=== PATIENT | female | born 1950 | race Caucasian/White ===

== ENCOUNTER → 2016-08-15 | Outpatient (CLI) | payer BC ==
--- NOTE | 2016-08-18 12:46 | MAMMOGRAPHY REPORT ---
BILATERAL DIGITAL SCREENING MAMMOGRAM WITH CAD: 08/15/2016 CLINICAL HISTORY: Routine screening. Patient has no complaints. TECHNIQUE: Current study was also evaluated with a Computer Aided Detection (CAD) system. Bilatera l CC and MLO views were obtained. COMPARISON: Comparison is made to exams dated: 07/10/2015 mammogram, 07/04/2014 mammogram, 06/29/2013 m ammogram - [facility], 05/25/2007, and 12/22/2005 mammogram - [facility]. BREAST COMPOSITION: The tissue of both breasts is heterogeneously dense, which may obscure small ma sses. FINDINGS: There are possible calcifications seen within the left central breast, for which spot mag nification views are recommended for further evaluation. The remainder of both breasts are stable compared to prior exams, without suspicious masses, calcifi cations, or areas of architectural distortion noted. IMPRESSION: ACR BI-RADS CATEGORY 0: INCOMPLETE EVALUATION: NEED ADDITIONAL IMAGING EVALUATION Left breast calcifications, for which additional imaging evaluation is recommended. The patient sohail l be called to schedule an appointment. Approximately 10% of breast cancers are not detected with mammography. A negative mammographic repor t should not delay biopsy if a clinically suggestive mass is present. Rosalie Oviedo M.D. ah/:08/17/2016 12:14:35 [employer] Helper: Chinedu SOLOMON(Janet)(M), [facility] letter sent: Addl Imaging 0 BI-RADS Code: ACR BI-RADS Category 0: Incomplete Evaluation: Need Additional Imaging Evaluation
== END | disposition home or self-care (01) ==
LOC: C.MAMM 11:28
DX: Z12.31 Encounter for screening mammogram for malignant neoplasm of breast (principal); R92.1 Mammographic calcification found on diagnostic imaging of breast

== ENCOUNTER → 2016-08-28 | Outpatient (CLI) | payer BC ==
--- NOTE | 2016-08-28 13:04 | MAMMOGRAPHY REPORT ---
UNILATERAL LEFT DIGITAL DIAGNOSTIC MAMMOGRAM: 08/28/2016 CLINICAL HISTORY: Callback from screening mammogram for left breast calcifications. TECHNIQUE: Spot magnification left CC and ML views were obtained. COMPARISON: Comparison is made to exams dated: 08/15/2016 mammogram, 07/10/2015 mammogram, 07/04/2014 ma mmogram, 06/29/2013 mammogram - [facility], 05/25/2007, and 12/22/2005 mammogram - [facility]. BREAST COMPOSITION: The tissue of the left breast is heterogeneously dense, which may obscure small masses. FINDINGS: Spot magnification views of the left breast demonstrate regionally distributed faint punc cook calcifications within the left superior breast, centered around the 12:00 region. The calcific ations are likely stable compared to prior exams including the 2014 and 2013 exams, although it is d ifficult to make an accurate comparison due to differences in mammographic technique between the cur rent and prior exams (currently using [employer] equipment, previously using [employer] equipment). Given the benign morphology and distribution and given the probable long-term stability, the calcifications ar e probably benign. Recommend a short interval follow-up in 6 months to confirm stability on spot ma gnification views. IMPRESSION: ACR-BI-RADS CATEGORY 3: PROBABLY BENIGN Regional punctate calcifications in the left 12:00 breast are likely stable compared to the 2014 and 2013 exams and are probably benign. Recommend short interval follow-up mammograms in 6 months to c onfirm stability on spot magnification views. The patient has been verbally notified of the results. Approximately 10% of breast cancers are not detected with mammography. A negative mammographic repor t should not delay biopsy if a clinically suggestive mass is present. Rosalie Oviedo M.D. /:08/28/2016 10:16:21 [employer] Operator: Lora SOLOMON(Janet)(M), [facility] letter sent: Follow Up Recommended 3 BI-RADS Code: ACR-BI-RADS Category 3: Probably Benign
== END | disposition home or self-care (01) ==
LOC: C.MAMM 09:55
DX: R92.1 Mammographic calcification found on diagnostic imaging of breast (principal)

== ENCOUNTER → 2016-10-08 | Outpatient (CLI) | payer BC | END | disposition home or self-care (01) | LOC: C.LAB 07:29 | DX: E55.9 Vitamin D deficiency, unspecified (principal) ==

== ENCOUNTER → 2016-11-10 | Outpatient (CLI) | payer BC ==
[2016-11-10 12:39] LABS: ALT/SGPT 89 U/L (12-78); AST/SGOT 97 U/L (15-37); BLOOD UREA NITROGEN 13 mg/dl (7-18); BUN/CREATININE RATIO 10.5 (10-20); CALCIUM 9.2 mg/dl (8.5-10.1); CARBON DIOXIDE 25 mmol/L (21-32); CHLORIDE 99 mmol/L (98-107); GLUCOSE 120 mg/dl (70-99); POTASSIUM 3.7 mmol/L (3.5-5.1); SODIUM 134 mmol/L (136-145)
[2016-11-10 12:43] LABS: ALB/GLOB RATIO 0.9 (0.9-2); ALKALINE PHOSPHATASE 87 U/L (45-117)
[2016-11-10 13:03] LABS: HEMATOCRIT 39.8 % (37-47); MEAN CELL VOLUME 87.5 fL (80-100); MEAN CORPUSCULAR HEMOGLOBIN 30.1 pg (25-34); MEAN CORPUSCULAR HGB CONC 34.4 g/dl (32-36); MEAN PLATELET VOLUME 11.1 fL (7.4-10.4); PLATELET COUNT 73 K/uL (130-400); RED BLOOD COUNT 4.55 M/uL (4.2-5.4); WHITE BLOOD COUNT 2.61 K/uL (4.8-10.8)
[2016-11-10 13:55] LABS: LYME DISEASE AB IGG NEG (NEG); LYME DISEASE AB IGM NEG (NEG)
[2016-11-10 14:04] LABS: BASO % 1.1 %; BASO ABS # 0.03 K/uL (0-0.2); COMPLETE YES; ECHINOCYTES 1+; EOS % 0.4 %; IG% 1.1 %; LYMPH % 17.6 %; LYMPH ABS # 0.46 K/uL (1.2-3.4); NEUT % 71.8 %; OVALOCYTES 1+; PLT ESTIMATE DECREASED
== END | disposition home or self-care (01) ==
LOC: C.LAB1850 10:54
DX: R50.9 Fever, unspecified (principal)